=== PATIENT | male | born 1965 | race Caucasian/White ===

== ENCOUNTER 2017-10-13 08:43 | Day surgery (SDC) | payer BC ==
[~2017-10-13 08:43] MED LIST: LIDOCAINE HCL 1% MPF SOL ONE; PROPOFOL 500 MG/50 ML EMU IV ONE
[2017-10-13 10:02] VITALS: O2SAT 97
[2017-10-13 10:31] VITALS: BP 132/74; PULSE 76; RESP 18; TEMP 97.6
== END 2017-10-13 10:50 | disposition home or self-care (01) ==
LOC: SURG 08:43
PROVIDERS: ATTEND Surgery
DX: Z12.11 Encounter for screening for malignant neoplasm of colon (principal); K57.30 Diverticulosis of large intestine without perforation or abscess without bleeding; D12.5 Benign neoplasm of sigmoid colon; K62.1 Rectal polyp
CPT/HCPCS: 45385; 99001; J2001; J2704